=== PATIENT | female | born 1940 | race Caucasian/White ===

== ENCOUNTER → 2016-11-09 | Day surgery (SDC) | payer MEDICARE, OTHER ==
[~2016-11-09] VITALS: Ht 157.5 cm; Wt 68.0 kg
[2016-11-09] VITALS (10 sets, daily range): BP systolic 123–144; BP diastolic 58–82; PULSE 69–78; RESP 9–21; O2SAT 95–98
[~2016-11-09] MED LIST: CeFAZolin Inj 2 GM in IV Premix 1 EACH IV ONE; Dexamethasone 4 mg/mL Inj IVPUSH PRN; Dexamethasone 4 mg/mL Inj ONE; EPHEDrine Sulfate 50 mg/mL Inj IVPUSH PRN; HYDROmorphone 1 mg/mL Inj IVPUSH PRN; LEVO88TA3 PO; Lactated Ringer's 1,000 ML IV SCH; Lactated Ringer's 500 ML IV PRN; Lidocaine 2%-Epi 1:100,000 20 mL Inj NERVEBLOCK ONE; MetoCLOpramide 5 mg/mL 2 mL Inj IVPUSH PRN; Ondansetron 2 mg/mL 2 mL Inj IVPUSH PRN; Ondansetron 2 mg/mL 2 mL Inj ONE; Phenylephrine 10,000 mCg/mL Inj IVPUSH PRN; fentaNYL-PF 50 mCg/mL 2 mL Inj ONE; oxyCODONE-Acetamin 5-325 mg Tablet PO PRN
[2016-11-09] MEDS: Lactated Ringer's 1,000 ML IV SCH ×2 (05:49→07:26)
--- NOTE | 2016-11-09 06:40 | PCM.HPANE ---
Patient Data Date of Service: Nov 09, 2016 Surgeon Admitting Provider: Attending Provider:Zahraa Hernandes DPM Primary Care Physician:Mayur Causey MD Other Provider:Romana López Anesthesia Reason for Visit Right 1ST Mtp Joint Arthritis Ht/WT & BMI Height (Feet): 5 Height (Inches): 2.00 Weight (Kilograms): 68.030 Body Mass Index 27.00 Allergies Coded Allergies: No Known Allergies (Unverified , 11/03/16) Past Anesthesia History Anesthesia History: Denies:: Abnormal Airway, Anesthesia Reactions, Difficult Intubation, Fam Anesthesia Reaction, Fam Malignant Hypertherm, Malignant Hyperthermia Diabetes History Hx Diabetes?: No MRSA MRSA: No Medications Hypertension Medication: No Home Meds Incl Beta Jordan: No Reported Medications Levothyroxine (Synthroid)88 Mcg [id number] Mcg PO DAILY Ref 0 11/03/16 History History of ENT Problems?: No HEENT History: Positive for:: Cataracts (bilateral surgery) Denies:: Abnormal Airway Difficult Intubation Dysphagia Glaucoma Hearing Problem Sinus Problem TMJ Denture Type: Partial- Upper Teeth Condition: Within Normal Limits Hx of Heart Problems?: No Cardiovascular History: Denies:: AICD Abdominal Aortic Aneurism Atrial Fibrillation Cardiac Surgery Edema Heart Murmur Hypertension Irregular Heartbeat Pacemaker Peripheral Vascular Rheumatic Fever Thrombophlebitis Hx of Respiratory Problem?: No Respiratory History: Denies:: Asthma COPD Emphysema Oxygen Administration Pneumonia Tuberculosis Use of C-PAP Machine Use of Inhalers / NEBS Hx Neurologic Problems?: Yes Neurological History: Denies:: Alzheimer's Disease CVA Dizziness Multiple Sclerosis Parkinson's Disease Seizures Other Neurological Pertinent: hx of neuropathy bilateral feet Hx of GI Problems?: No Hx of Problems?: No Genitourinary History: Denies:: Kidney Stones Urinary Tract Infection Female Hx: Denies:: Currently (post menopausal ) Problems with Breasts? Skin History: Denies:: History Skin Disorders? Pressure Ulcers Hx Musculoskeletal Problems?: Yes Musculoskeletal History: Positive for:: Musculoskeletal Trauma (right foot current admission problem ) Osteoarthritis Denies:: Back Injury Degenerative Joint Fibromyalgia Joint Replacement Systemic Lupus Hx of Psycho/Social Problems?: No Psycho Social History: Denies:: Anxiety Hx Depression Hx Surgeries?: Yes (appe, tonsil, tubal, wicho cataracts) Hx Any Other Health Problems?: Yes Other History: Positive for:: Thyroid Disease Denies:: Cancer History Blood Transfusions: Positive for:: Accept Blood Products? Denies:: Blood Transfusions Hx Diabetes: No Hx Alcohol Use: NoHx Substance Use: NoHave You Smoked inLast 12 mo: No Stop/Bang Treated for Sleep Apnea?: No Do You Have a CPAP Machine?: No S-Snoring: Do You Snore Loudly: No T-Tired: feel tired, fatigued: No O-Obsered: Observed not breath: No P-Blood Pressure: treated: No B- Body Mass Index > 35 kg/m2: No A- Age over 50: Yes N- Neck Large Circumference: No G- Gender Male: No JORDAN Total Score: 1 JORDAN Risk Assessment: Low Risk, <3 Yes Risk Assessment Category Category 1A: Patient has history of documented sleep apnea, and HAS NOT received any narcotic, sedative or anesthesia administration during this stay. Category 1B: Patient has history of documented sleep apnea, and HAS received any narcotic , sedative or anesthesia administration during this stay Category 2: Patient has SUSPECTED Obstructive Sleep Apnea, and HAS received any narcotic , sedative or anesthesia administration during this stay. Category 3: Patient has SUSPECTED Obstructive Sleep Apnea and HAS NOT received narcotic, sedative or anesthesia administration during this stay. Category 4: Outpatient in Procedural Areas with known sleep apnea or who screen positive for High Risk via the STOP/BANG questionnaire. Exam Exam Vital Signs Vital Signs Date Time Temp Pulse Resp B/P Pulse Ox O2 Delivery O2 Flow Rate FiO2 11/09/16 06:15 36.2 70 18 144/65 98 Room Air General Appearance: Alert, Oriented X3, Cooperative HEENT/AIRWAY: MP 3, Mouth Opening (normal) Lungs: Clear to Auscultation Heart: Regular Rate/Rhythm, No Murmurs/Rubs/Gallops Meds/Labs/Diagnostics Admission Meds Current Medications Lactated Ringer's (Lr) 1,000 ml @ 120 mls/hr [id number] IV Last administered on t 05:49; Start 11/09/16 at 05:00; Stop 11/09/16 at 13:19 Plan Impression Patient chart reviewed, patient interviewed and anesthestic plan with risks, benefits, and alternatives discussed, and informed consent obtained. ASA Physical Status: ASA2 Mod Systemic Disease Anesthetic Plan: GA Bene/Risks/Altern/Consents: Yes HP Complete Prior to Induction: Yes Juan Velez DO Nov 09, 2016 06:40
[2016-11-09] MEDS: fentaNYL-PF 50 mCg/mL 2 mL Inj IVPUSH PRN ×2 (09:31→09:44)
--- NOTE | 2016-11-09 09:31 | PCM.PODPO ---
Podiatry Operative Report Date of Service: Nov 09, 2016 Date of Service Nov 09, 2016 Pre Operative Diagnosis Right posttraumatic hallux rigidus Post Operative Diagnosis Right Posttraumatic hallux rigidus Procedure Right 1st metatarsophalangeal joint arthroplasty with total implant Surgeon Surgeon: Zahraa Hernandes DPM Assistants: None Indication for Procedure Joint pain and limitation of range of motion, exuberant exostosis formation interfering with shoes. Findings Consistent with 80% loss of articular cartilage, large exostosis formation dorsally, medially, and laterally. Mobile sesamoid apparatus. Details of Procedure The patient was identified in the preoperative holding area and brought back to the operating room. She was placed on the operating table in supine position. The timeout protocol was completed in the patient's right foot identified as the site of surgery. Gen. anesthesia was initiated and the patient's right foot prepped and draped in usual aseptic manner. The right leg was positioned on a bone foam to allow for easier access and radiographic placement. The foot was anesthetized in a Loyd block, augmented with lidocaine with epinephrine along the dorsomedial incision. The incision was made on the dorsomedial aspect of the first metatarsophalangeal joint. It was deepened bluntly. The capsule was incised medial to the extensor hallucis tendon. The extensor capsularis tendon was preserved. The capsule was reflected off of the areas of exostosis dorsally laterally and medially. A Dante was used to remove 2 loose bodies from the dorsolateral aspect of the joint. The exostoses appeared to be softer than the remaining bone. Using the usual placement technique for an arthro-surface total first metatarsophalangeal joint implant and fluoroscopic guidance, the metatarsal head was prepped as well as the proximal phalangeal base. A temporary spacer implant was tried and found to be somewhat tight. An additional 2 mm of space was then added, using the same guidance technique. The trial components was once again used to test range of motion, giving us 90 of dorsiflexion and 45 of plantarflexion. Irrigation was performed, the implant was placed in the appropriate orientation on the metatarsal head surface as well as the proximal phalangeal base, including the poly-spacer. The wound was irrigated with normal saline. All remaining exostosis and overhanging pieces of bone interfering with the implants were smooth that out with a rongeur and the wound irrigated once again. The patient' s wound was closed with 3-0 Vicryl for the capsule and peritenon, 4-0 Prolene for the skin. The dressing consisted of Wiggins silk, normal saline moistened gauze, Kerlix, and Coban. She was weaned off of general anesthesia and taken to the recovery room with vital signs stable and the vascular status to the right foot intact. Her postoperative shoe was fitted immediately over the dressing. Grafts, Implants: Implants-See Implant Record Complications There were no periprocedural complications identified. Condition Stable Anesthetic Administered: GA Drains: None Catheters: None Output, Estimated Blood Loss: 20 (ml) Blood Admin during surgery: No Surgical Cast or Splint: Post-op Boot Surgical Specimen Removed: No Specimen sent to Pathology: No Post Operative Plan The patient will be weightbearing as tolerated in a postoperative shoe on the right foot. She will be keeping her dressing clean, dry, intact until she sees me on 11/17/2016. Her was given instructions for elevation, icing, keeping the dressing clean. She has postoperative pain medication at home. Zahraa Hernandes DPM Nov 09, 2016 09:31
== END | disposition home or self-care (01) ==
LOC: SAS 05:42
PROVIDERS: ATTEND Podiatrist
DX: M20.21 Hallux rigidus, right foot (principal); M19.071 Primary osteoarthritis, right ankle and foot; E03.9 Hypothyroidism, unspecified
CPT/HCPCS: 28291; C1776; J0690; J1100; J2250; J2405; J3010; J7120